=== PATIENT | male | born 1955 | race Caucasian/White ===

== ENCOUNTER 2019-09-06 07:06 | Emergency (ER) | payer BC ==
[2019-09-06] MEDS ORDERED: Ketorolac 30 MG/ML SDV IVPUSH ONE (07:33)
[2019-09-06] MEDS ORDERED: Metoclopramide 10 MG/2 ML SDV IVPUSH ONE (07:33)
[2019-09-06] MEDS ORDERED: predniSONE 20 MG Tab PO ONE (07:34)
[2019-09-06] MEDS ORDERED: Sodium Chloride 0.9% 10 ML Syringe FLUSH PRN (07:44)
[2019-09-06] MEDS ORDERED: Sodium Chloride 0.9% 2.5 ML Syringe FLUSH PRN (07:44)
--- NOTE | 2019-09-06 08:07 | EDM.PDOC ---
ED HPI GENERAL MEDICAL PROBLEM - General Chief Complaint: Headache Stated Complaint: HEADACHE FOR 2 WEEKS Time Seen by Provider: 09/06/19 07:40 Source of Information: Reports: Patient History Limitations: Reports: No Limitations - History of Present Illness INITIAL COMMENTS - FREE TEXT/NARRATIVE: Patient is a 63-year-old male with a past medical history of high cholesterol presenting with a chief complaint of headache. Headache is been for approximately 2 weeks. Headache is been constant and seems to be worse at night. Patient states the symptoms wakes in the middle of the night for severe headache. Patient reports that he has associated bilateral neck pain posterior and that the headache seems to be bitemporal as well. There are no other exacerbating symptoms. Patient has been taking Tylenol without relief of headache. Patient denies associated dizziness. Patient's headache was not maximal in onset. Patient has had similar headaches in the past but none this severe. Patient denies fevers, chills, and carbon monoxide exposure, recent head trauma, blurry vision, jaw claudication, joint pains. head Pain Score (Numeric/FACES): 5 - Related Data Allergies Allergy/AdvReac Type Severity Reaction Status Date / Time Penicillins Allergy Other Verified 09/06/19 07:22 Home Meds: Home Meds Esomeprazole Magnesium [Nexium] 40 mg PO DAILY 09/06/19 [History] Rosuvastatin [Crestor] 5 mg PO DAILY 09/06/19 [History] Past Medical History - Past Health History Medical/Surgical History: Denies Medical/Surgical History Cardiovascular History: Reports: High Cholesterol Musculoskeletal History: Reports: Back Pain, Chronic, Fracture - Past Surgical History HEENT Surgical History: Reports: Tonsillectomy GI Surgical History: Reports: Appendectomy Musculoskeletal Surgical History: Reports: Arthroscopic Knee, Other (See Below) Other Musculoskeletal Surgeries/Procedures:: Back sx with fusions Social & Family History - Family History Family Medical History: Noncontributory - Tobacco Use Smoking Status *Q: Never Smoker - Recreational Drug Use Recreational Drug Use: No ED ROS GENERAL - Review of Systems Review Of Systems: See Below Free Text/Narrative/Comment: In addition to that documented in the HPI above, the additional ROS was obtained : Constitutional: Denies fevers or chills Eyes: Denies vision changes ENMT: Denies sore throat CV: Denies chest pain Resp: Denies SOB GI: Denies vomiting or diarrhea : Denies painful urination MSK: Denies recent trauma Skin: Denies new rashes Neuro: Denies new numbness or tingling or weakness Endocrine: Denies unexpected weight loss Heme: Denies bleeding disorders - Physical Exam Exam: See Below Text/Narrative:: I have reviewed the triage vital signs Const: Well nourished, well developed, appears stated age Eyes: PERRL, no conjunctival injection HENT: NCAT, Neck supple without meningismus. No rhinorrhea. Normal oropharynx. CV: RRR, Warm, well-perfused extremities RESP: CTAB, Unlabored respiratory effort GI: soft, non-tender, non-distended, no masses MSK: No gross deformities appreciated Skin: Warm, dry. No rashes Neuro: Alert, clinical unit coordinator II-XII grossly intact. Sensation and motor function of extremities grossly intact. Gait is normal however the patient has slight off balance when heel-to-toe walking. [id number]-[id number] test is normal. No temporal tenderness. Psych: Appropriate mood and affect Course - Vital Signs Last Recorded V/S: Last Vital Signs Temp 35.7 C 09/06/19 07:17 Pulse 79 09/06/19 07:17 Resp 18 09/06/19 07:17 BP 157/101 H 09/06/19 07:17 Pulse Ox 93 L 09/06/19 07:17 - Orders/Labs/Meds Orders: Active Orders 24 hr Category Date Time Status Sodium Chloride 0.9% [Saline Flush] Med 09/06/19 07:44 Active 10 ml FLUSH ASDIRECTED PRN Sodium Chloride 0.9% [Saline Flush] Med 09/06/19 07:44 Active 2.5 ml FLUSH ASDIRECTED PRN Saline Lock Insert [OM.PC] Stat Oth 09/06/19 07:44 Ordered Medication Orders Sodium Chloride (Saline Flush) 10 ml FLUSH ASDIRECTED PRN PRN Reason: Keep Vein Open Sodium Chloride (Saline Flush) 2.5 ml FLUSH ASDIRECTED PRN PRN Reason: Keep Vein Open Meds: Medications Generic Name Dose Route Start Last Admin Trade Name Freq PRN Reason Stop Dose Admin Sodium Chloride 10 ml 09/06/19 07:44 Saline Flush FLUSH ASDIRECTED PRN Keep Vein Open Sodium Chloride 2.5 ml 09/06/19 07:44 Saline Flush FLUSH ASDIRECTED PRN Keep Vein Open Discontinued Medications Generic Name Dose Route Start Last Admin Trade Name Abimaelq PRN Reason Stop Dose Admin Ketorolac Tromethamine 30 mg 09/06/19 07:33 09/06/19 07:43 Toradol IVPUSH 09/06/19 07:34 30 mg ONETIME ONE Administration Methocarbamol 1,500 mg 09/06/19 08:38 Methocarbamol PO 09/06/19 08:39 ONETIME ONE Metoclopramide HCl 10 mg 09/06/19 07:33 09/06/19 07:44 Reglan IVPUSH 09/06/19 07:34 10 mg ONETIME ONE Administration Prednisone 40 mg 09/06/19 07:34 09/06/19 07:44 Prednisone PO 09/06/19 07:35 40 mg ONETIME ONE Administration Departure - Departure Time of Disposition: 09:24 Disposition: Home, Self-Care 01 Clinical Impression: Tension-type headache - Discharge Information Instructions: Tension Headache, Adult, [id number] Referrals: PCP,Not In Area [Primary Care Provider] - Forms: ED Department Discharge Sepsis Event Note - Evaluation Sepsis Screening Result: No Definite Risk - Focused Exam Vital Signs: Vital Signs Temp Pulse Resp BP Pulse Ox 09/06/19 07:17 35.7 C 79 18 157/101 H 93 L Date Exam was Performed: 09/06/19 Time Exam was Performed: 09:24 - My Orders Last 24 Hours: My Active Orders 09/06/19 07:44 Sodium Chloride 0.9% [Saline Flush] 10 ml FLUSH ASDIRECTED PRN Sodium Chloride 0.9% [Saline Flush] 2.5 ml FLUSH ASDIRECTED PRN Saline Lock Insert [OM.PC] Stat - Assessment/Plan Last 24 Hours: My Active Orders 09/06/19 07:44 Sodium Chloride 0.9% [Saline Flush] 10 ml FLUSH ASDIRECTED PRN Sodium Chloride 0.9% [Saline Flush] 2.5 ml FLUSH ASDIRECTED PRN Saline Lock Insert [OM.PC] Stat Assessment:: 63-year-old male presenting with headache. Patient has no major neurologic deficits other than slight gait imbalance with heel toe testing. Headache does not seem to have a malignant cause however differential can include sinusitis, tumor, tension headache, temporal arteritis, subarachnoid hemorrhage. Subarachnoid hemorrhage is unlikely given duration of symptoms and onset. CT brain performed to examine for evidence of sinusitis as well as any mass- effect. Upon reexamination, patient still is well-appearing and has no focal neurologic deficits. Headache is slightly improved. Likely etiology of headache is tension type headache. Patient is instructed to follow-up with neurology since the headache is been for over 2 weeks and malignancy cannot be fully excluded with CT scan. However, this is nonemergent and can be managed as an outpatient. Patient given return precautions.
--- NOTE | 2019-09-06 08:27 | CT ---
INDICATIONS: Severe headache with loss of balance. TECHNIQUE: Head was scanned from the foramen magnum to the vertex without contrast. Brain and bone windows reviewed. Sagittal and coronal reformatted images were generated. FINDINGS: The ventricles and sulci are normal for age. No mass effect or midline shift. No intraparenchymal hemorrhage or hematoma. No extra-axial fluid collections. Orbits appear unremarkable. Calvarium is intact. The mastoid air cells are unremarkable. There is mucoperiosteal thickening in the ethmoid air cells bilaterally. Probable retention cysts in the maxillary sinuses and left sphenoid. IMPRESSION: No acute intracranial abnormality. Please note that all CT scans at this facility use dose modulation, iterative reconstruction, and/or weight-based dosing when appropriate to reduce radiation dose to as low as reasonably achievable. Dictated by Yadiel Rae MD @ Sep 06 2019 8:21AM Signed by Dr. Yadiel Rae @ Sep 06 2019 8:24AM
[2019-09-06] MEDS ORDERED: Methocarbamol 750 MG TAB PO ONE (08:38)
== END 2019-09-06 09:48 | disposition home or self-care (01) ==
LOC: MW.ED 07:06
DX: G44.209 Tension-type headache, unspecified, not intractable (principal); Z88.0 Allergy status to penicillin; Z79.899 Other long term (current) drug therapy; Z90.49 Acquired absence of other specified parts of digestive tract; Z98.890 Other specified postprocedural states
CPT/HCPCS: 70450; 96374; 96375; 99284; A9270; J1885; J2765